=== PATIENT | female | born 1930 | race Caucasian/White ===

== ENCOUNTER 2017-08-31 09:15 | Inpatient (IN) | payer MEDICARE, OTHER ==
[2017-08-31 09:52] LABS: ADD MAN DIFF? NO
[2017-08-31 10:01] LABS: WHITE BLOOD COUNT 3.5 10^3/ul (4.8-10.8)
[2017-08-31 10:01] LABS: BASOPHILS % 0.3 % (0.0-2.0); EOSINOPHILS % 1.1 % (0.0-7.0); HEMATOCRIT 31.4 % (37.0-47.0); HEMOGLOBIN 10.1 g/dl (12.0-16.0); LYMPHOCYTES # 0.8 10^3/ul (0.8-2.9); LYMPHOCYTES % 23.5 % (15.0-51.0); MEAN CORPUSCULAR HEMOGLOBIN 24.3 pg (29.0-33.0); MEAN CORPUSCULAR HGB CONC 32.2 g/dl (32.0-37.0); MEAN CORPUSCULAR VOLUME 75.5 fl (82.0-101.0); MEAN PLATELET VOLUME 9.7 fl (7.4-10.4); MONOCYTE # 0.4 10^3/ul (0.3-0.9); MONOCYTES % 10.5 % (0.0-11.0); NEUTROPHIL # 2.3 10^3/ul (1.6-7.5); NEUTROPHILS % 64.3 % (39.0-77.0); PLATELET COUNT 232 10^3/UL (140-415); RED BLOOD COUNT 4.16 10^6/ul (4.20-5.40); RED CELL DISTRIBUTION WIDTH 12.1 % (11.5-14.5)
[2017-08-31] MEDS: SOD CHLORIDE 0.9% 500 ML IV (10:20)
[2017-08-31 10:21] LABS: INR 1.08; PROTIME 14.1 Sec (11.9-14.9); PT RATIO 1.1
[2017-08-31 10:41] LABS: ALANINE AMINOTRANSFERASE 25 IU/L (13-69); ALBUMIN 3.9 g/dl (3.3-4.9); ALBUMIN/GLOBULIN RATIO 1.25; ALKALINE PHOSPHATASE 59 IU/L (42-121); ANION GAP 18 (8-16); ASPARTATE AMINO TRANSFERASE 35 IU/L (15-46); BILIRUBIN,INDIRECT 0.3 mg/dl (0-1.1); BILIRUBIN,TOTAL 0.3 mg/dl (0.2-1.3); BLOOD UREA NITROGEN 19 mg/dl (7-20); CALCIUM 9.3 mg/dl (8.4-10.2); CARBON DIOXIDE 24 mmol/L (21-31); CHLORIDE 109 mmol/L (97-110); CREATININE 0.74 mg/dl (0.44-1.00); GLUCOSE 100 mg/dl (70-220); POTASSIUM 3.4 mmol/L (3.5-5.1); SODIUM 148 mmol/L (135-144)
[2017-08-31 10:58] LABS: TROPONIN-I < 0.012 ng/ml (0.00-0.12)
[2017-08-31] MEDS: LORAZEPAM 2 MG INJ IV (11:38)
[2017-08-31] MEDS ORDERED: ACETAMINOPHEN 325 MG TAB PO (13:30)
[2017-08-31] MEDS ORDERED: ONDANSETRON 4 MG INJ IV (13:30)
[2017-08-31 20:34] LABS: IRON 48 ug/dl (35-150)
[2017-08-31 20:43] LABS: % IRON SATURATION 13 % SAT (22-52); TOTAL IRON BINDING CAPACITY 362 ug/dl (241-421)
[2017-08-31] MEDS ORDERED: D5W-0.45 NACL + KCL 10 MEQ 1,000 ML IV (21:30)
[2017-08-31] MEDS: ENOXAPARIN 40 MG/0.4 ML SYG SC (21:38)
[2017-08-31] MEDS: POTASSIUM CHLORIDE 10 MEQ in DEXTROSE 5%-0.45% NACL 1,000 ML IV (21:38)
[2017-09-01] MEDS: LORAZEPAM 2 MG INJ IV ×2 (00:10→20:20)
[2017-09-01] MEDS: HALOPERIDOL 5 MG INJ IM ×2 (01:13→20:58)
[2017-09-01] MEDS: PANTOPRAZOLE 40 MG INJ IV (05:14)
[2017-09-01 06:48] LABS: ADD MAN DIFF? NO
[2017-09-01 06:59] LABS: BASOPHILS % 0.6 % (0.0-2.0); EOSINOPHILS % 1.2 % (0.0-7.0); HEMATOCRIT 28.6 % (37.0-47.0); HEMOGLOBIN 9.1 g/dl (12.0-16.0); LYMPHOCYTES # 0.8 10^3/ul (0.8-2.9); LYMPHOCYTES % 22.8 % (15.0-51.0); MEAN CORPUSCULAR HEMOGLOBIN 24.2 pg (29.0-33.0); MEAN CORPUSCULAR HGB CONC 31.8 g/dl (32.0-37.0); MEAN CORPUSCULAR VOLUME 76.1 fl (82.0-101.0); MEAN PLATELET VOLUME 10.4 fl (7.4-10.4); MONOCYTE # 0.3 10^3/ul (0.3-0.9); MONOCYTES % 8.3 % (0.0-11.0); NEUTROPHIL # 2.3 10^3/ul (1.6-7.5); NEUTROPHILS % 67.1 % (39.0-77.0); PLATELET COUNT 200 10^3/UL (140-415); RED BLOOD COUNT 3.76 10^6/ul (4.20-5.40); RED CELL DISTRIBUTION WIDTH 12.5 % (11.5-14.5)
[2017-09-01 06:59] LABS: WHITE BLOOD COUNT 3.4 10^3/ul (4.8-10.8)
[2017-09-01 07:14] LABS: ALANINE AMINOTRANSFERASE 33 IU/L (13-69); ALBUMIN 3.6 g/dl (3.3-4.9); ALBUMIN/GLOBULIN RATIO 1.33; ALKALINE PHOSPHATASE 49 IU/L (42-121); ANION GAP 18 (8-16); ASPARTATE AMINO TRANSFERASE 39 IU/L (15-46); BILIRUBIN,INDIRECT 0.1 mg/dl (0-1.1); BILIRUBIN,TOTAL 0.1 mg/dl (0.2-1.3); BLOOD UREA NITROGEN 15 mg/dl (7-20); CALCIUM 8.8 mg/dl (8.4-10.2); CARBON DIOXIDE 24 mmol/L (21-31); CHLORIDE 112 mmol/L (97-110); GLUCOSE 102 mg/dl (70-220); SODIUM 151 mmol/L (135-144); TOTAL PROTEIN 6.3 g/dl (6.1-8.1)
[2017-09-01 07:18] LABS: POTASSIUM 2.9 mmol/L (3.5-5.1)
[2017-09-01] MEDS ORDERED: MAG SULFATE 2GM IN 50 ML IVPB (09:00)
[2017-09-01] MEDS: POTASSIUM CHLORIDE 50 ML IVPB ×3 (09:35→11:31)
[2017-09-01] MEDS: POTASSIUM CHLORIDE (SR) 20 MEQ TAB PO (09:35)
[2017-09-01] MEDS: POTASSIUM CHLORIDE 30 MEQ in DEXTROSE 5%-0.45% NACL 1,000 ML IV ×2 (11:10→22:54)
[2017-09-01] MEDS: ENOXAPARIN 40 MG/0.4 ML SYG SC (20:20)
[2017-09-02] MEDS: PANTOPRAZOLE 40 MG INJ IV (05:44)
[2017-09-02] MEDS: LORAZEPAM 2 MG INJ IV ×2 (05:58→21:06)
[2017-09-02 08:41] LABS: ADD MAN DIFF? NO
[2017-09-02 08:45] LABS: BASOPHILS % 0.5 % (0.0-2.0); EOSINOPHILS # 0.1 10^3/ul (0.0-0.5); EOSINOPHILS % 3.5 % (0.0-7.0); HEMATOCRIT 28.2 % (37.0-47.0); LYMPHOCYTES # 0.8 10^3/ul (0.8-2.9); LYMPHOCYTES % 20.7 % (15.0-51.0); MEAN CORPUSCULAR HEMOGLOBIN 24.3 pg (29.0-33.0); MEAN CORPUSCULAR HGB CONC 31.9 g/dl (32.0-37.0); MEAN PLATELET VOLUME 10.3 fl (7.4-10.4); MONOCYTE # 0.3 10^3/ul (0.3-0.9); MONOCYTES % 7.2 % (0.0-11.0); NEUTROPHIL # 2.6 10^3/ul (1.6-7.5); NEUTROPHILS % 67.8 % (39.0-77.0); PLATELET COUNT 193 10^3/UL (140-415); RED BLOOD COUNT 3.71 10^6/ul (4.20-5.40); RED CELL DISTRIBUTION WIDTH 12.5 % (11.5-14.5)
[2017-09-02 08:45] LABS: WHITE BLOOD COUNT 3.8 10^3/ul (4.8-10.8)
[2017-09-02 09:16] LABS: ALANINE AMINOTRANSFERASE 31 IU/L (13-69); ALBUMIN 3.2 g/dl (3.3-4.9); ALBUMIN/GLOBULIN RATIO 1.06; ALKALINE PHOSPHATASE 49 IU/L (42-121); ANION GAP 15 (8-16); ASPARTATE AMINO TRANSFERASE 35 IU/L (15-46); BILIRUBIN,INDIRECT 0.3 mg/dl (0-1.1); BILIRUBIN,TOTAL 0.3 mg/dl (0.2-1.3); BLOOD UREA NITROGEN 10 mg/dl (7-20); CALCIUM 8.7 mg/dl (8.4-10.2); CARBON DIOXIDE 26 mmol/L (21-31); CHLORIDE 111 mmol/L (97-110); CREATININE 0.58 mg/dl (0.44-1.00); GLUCOSE 112 mg/dl (70-220); POTASSIUM 3.7 mmol/L (3.5-5.1); SODIUM 148 mmol/L (135-144); TOTAL PROTEIN 6.2 g/dl (6.1-8.1)
[2017-09-02] MEDS: POTASSIUM CHLORIDE 50 ML IVPB (11:04)
[2017-09-02] MEDS: POTASSIUM CHLORIDE 30 MEQ in DEXTROSE 5%-0.45% NACL 1,000 ML IV ×2 (11:11→23:44)
[2017-09-02] MEDS: HALOPERIDOL 5 MG INJ IM ×2 (11:11→18:12)
[2017-09-02] MEDS: METHIMAZOLE 5 MG TAB PO ×2 (15:24→21:06)
[2017-09-02] MEDS: ENOXAPARIN 40 MG/0.4 ML SYG SC (21:09)
[2017-09-03] MEDS: PANTOPRAZOLE 40 MG INJ IV (05:32)
[2017-09-03] MEDS: METHIMAZOLE 5 MG TAB PO ×3 (05:37→21:26)
[2017-09-03] MEDS: NITROFURANTOIN (SR) 100 MG CAP PO ×2 (12:54→21:26)
[2017-09-03] MEDS: POTASSIUM CHLORIDE 30 MEQ in DEXTROSE 5%-0.45% NACL 1,000 ML IV (13:18)
[2017-09-03] MEDS: POTASSIUM CHLORIDE 30 MEQ in SOD CHLORIDE 0.9% 150 ML IV (14:53)
[2017-09-03] MEDS: ENOXAPARIN 40 MG/0.4 ML SYG SC (21:00)
[2017-09-03] MEDS: BISACODYL (EC) 5 MG TAB PO (21:26)
[2017-09-03] MEDS: PEG/ELECTROLYTES 4L BTL PO (21:27)
[2017-09-04] MEDS: POTASSIUM CHLORIDE 30 MEQ in DEXTROSE 5%-0.45% NACL 1,000 ML IV ×3 (02:00→21:46)
[2017-09-04] MEDS ORDERED: PEG/ELECTROLYTES 4L BTL PO (05:00)
[2017-09-04] MEDS: METHIMAZOLE 5 MG TAB PO ×3 (05:31→21:38)
[2017-09-04] MEDS: PANTOPRAZOLE 40 MG INJ IV (05:31)
[2017-09-04 08:58] LABS: ADD MAN DIFF? NO
[2017-09-04] MEDS: NITROFURANTOIN (SR) 100 MG CAP PO ×2 (09:00→21:46)
[2017-09-04 09:03] LABS: BASOPHILS % 0.7 % (0.0-2.0); EOSINOPHILS # 0.1 10^3/ul (0.0-0.5); EOSINOPHILS % 2.6 % (0.0-7.0); HEMATOCRIT 32.1 % (37.0-47.0); HEMOGLOBIN 10.3 g/dl (12.0-16.0); LYMPHOCYTES # 0.7 10^3/ul (0.8-2.9); LYMPHOCYTES % 16.5 % (15.0-51.0); MEAN CORPUSCULAR HEMOGLOBIN 24.1 pg (29.0-33.0); MEAN CORPUSCULAR HGB CONC 32.1 g/dl (32.0-37.0); MEAN CORPUSCULAR VOLUME 75.2 fl (82.0-101.0); MEAN PLATELET VOLUME 10.6 fl (7.4-10.4); MONOCYTE # 0.3 10^3/ul (0.3-0.9); MONOCYTES % 7.4 % (0.0-11.0); NEUTROPHILS % 72.6 % (39.0-77.0); PLATELET COUNT 236 10^3/UL (140-415); RED BLOOD COUNT 4.27 10^6/ul (4.20-5.40); RED CELL DISTRIBUTION WIDTH 12.4 % (11.5-14.5)
[2017-09-04 09:03] LABS: WHITE BLOOD COUNT 4.2 10^3/ul (4.8-10.8)
[2017-09-04 09:33] LABS: ANION GAP 16 (8-16); BLOOD UREA NITROGEN 4 mg/dl (7-20); CALCIUM 9.6 mg/dl (8.4-10.2); CARBON DIOXIDE 28 mmol/L (21-31); CHLORIDE 106 mmol/L (97-110); GLUCOSE 119 mg/dl (70-220); POTASSIUM 3.9 mmol/L (3.5-5.1); SODIUM 146 mmol/L (135-144)
[2017-09-04] MEDS: ENOXAPARIN 40 MG/0.4 ML SYG SC (21:46)
[2017-09-05] MEDS: hydrALAzine 20 MG INJ IV (01:00)
[2017-09-05] MEDS: LORAZEPAM 2 MG INJ IV (01:01)
[2017-09-05] MEDS: PANTOPRAZOLE 40 MG INJ IV (06:32)
[2017-09-05] MEDS: METHIMAZOLE 5 MG TAB PO ×3 (06:32→21:01)
[2017-09-05] MEDS: NITROFURANTOIN (SR) 100 MG CAP PO ×2 (09:48→21:01)
[2017-09-05] MEDS: POTASSIUM CHLORIDE 30 MEQ in DEXTROSE 5%-0.45% NACL 1,000 ML IV ×2 (12:50→16:06)
[2017-09-06] MEDS: PANTOPRAZOLE 40 MG INJ IV (06:29)
[2017-09-06] MEDS: METHIMAZOLE 5 MG TAB PO ×3 (06:29→23:04)
[2017-09-06] MEDS: POTASSIUM CHLORIDE 30 MEQ in DEXTROSE 5%-0.45% NACL 1,000 ML IV ×2 (08:33→17:30)
[2017-09-06] MEDS: NITROFURANTOIN (SR) 100 MG CAP PO ×2 (09:19→23:05)
[2017-09-06 09:46] LABS: ADD MAN DIFF? NO
[2017-09-06 09:51] LABS: WHITE BLOOD COUNT 8.5 10^3/ul (4.8-10.8)
[2017-09-06 09:51] LABS: BASOPHILS % 0.1 % (0.0-2.0); EOSINOPHILS % 0.4 % (0.0-7.0); HEMATOCRIT 33.4 % (37.0-47.0); HEMOGLOBIN 10.8 g/dl (12.0-16.0); LYMPHOCYTES # 0.8 10^3/ul (0.8-2.9); LYMPHOCYTES % 8.8 % (15.0-51.0); MEAN CORPUSCULAR HEMOGLOBIN 24.4 pg (29.0-33.0); MEAN CORPUSCULAR HGB CONC 32.3 g/dl (32.0-37.0); MEAN CORPUSCULAR VOLUME 75.6 fl (82.0-101.0); MEAN PLATELET VOLUME 10.3 fl (7.4-10.4); MONOCYTE # 0.8 10^3/ul (0.3-0.9); NEUTROPHIL # 6.9 10^3/ul (1.6-7.5); NEUTROPHILS % 81.3 % (39.0-77.0); PLATELET COUNT 308 10^3/UL (140-415); RED BLOOD COUNT 4.42 10^6/ul (4.20-5.40); RED CELL DISTRIBUTION WIDTH 12.8 % (11.5-14.5)
[2017-09-06 10:06] LABS: ANION GAP 17 (8-16); BLOOD UREA NITROGEN 14 mg/dl (7-20); CALCIUM 9.6 mg/dl (8.4-10.2); CARBON DIOXIDE 26 mmol/L (21-31); CHLORIDE 104 mmol/L (97-110); CREATININE 0.58 mg/dl (0.44-1.00); GLUCOSE 136 mg/dl (70-220); POTASSIUM 4.2 mmol/L (3.5-5.1); SODIUM 143 mmol/L (135-144)
[2017-09-06 10:07] LABS: INR 1.07; PT RATIO 1.1
[2017-09-06 10:08] LABS: PARTIAL THROMBOPLASTIN TIME 27.5 Sec (25.0-35.0)
[2017-09-06] MEDS: hydrALAzine 20 MG INJ IV (12:08)
[2017-09-06] MEDS ORDERED: PEG/ELECTROLYTES 4L BTL PO ×2 (16:00→20:00)
[2017-09-06] MEDS: BISACODYL (EC) 5 MG TAB PO ×2 (16:20→23:04)
[2017-09-06] MEDS: MAGNESIUM CITRATE 300 ML BTL PO (18:08)
[2017-09-06] MEDS ORDERED: BISACODYL (EC) 5 MG TAB PO (20:00)
[2017-09-07] MEDS: POTASSIUM CHLORIDE 30 MEQ in DEXTROSE 5%-0.45% NACL 1,000 ML IV ×2 (00:57→14:50)
[2017-09-07] MEDS: METHIMAZOLE 5 MG TAB PO ×3 (06:00→22:40)
[2017-09-07] MEDS: PANTOPRAZOLE 40 MG INJ IV (06:45)
[2017-09-07] MEDS ORDERED: PROPOFOL 200 MG INJ (07:00)
[2017-09-07] MEDS ORDERED: LIDOCAINE 2% (SDV) 5 ML INJ (07:00)
[2017-09-07] MEDS: PROPOFOL 40 ML (08:06)
[2017-09-07] MEDS: EPHEDrine SULFATE 50 MG/5 ML SYG (08:07)
[2017-09-07] MEDS: PHENYLephrine (100 MCG/ML) 5ML SYG (08:08)
[2017-09-07] MEDS ORDERED: morphine (1 MG/ML) 10ML SYRINGE IV ×2 (09:30)
[2017-09-07] MEDS ORDERED: LABETALOL HCL 20MG INJ IV (09:30)
[2017-09-07] MEDS ORDERED: OXYCODONE/ACETAMINOPHEN (5/325) TAB PO (09:30)
[2017-09-07] MEDS ORDERED: DIPHENHYDRAMINE 50 MG INJ IV (09:30)
[2017-09-07] MEDS ORDERED: ONDANSETRON 4 MG INJ IV (09:30)
[2017-09-07] MEDS ORDERED: MIDAZOLAM 1 MG/ML 2 ML INJ IV (09:30)
[2017-09-07] MEDS ORDERED: EPHEDrine SULFATE 50 MG/5 ML SYG IV (09:30)
[2017-09-07] MEDS ORDERED: ALBUTEROL 0.083% (NEB) 2.5 MG/3 ML AMP HHN (09:30)
[2017-09-07] MEDS ORDERED: hydrALAzine 20 MG INJ IV (09:30)
[2017-09-07] MEDS: NITROFURANTOIN (SR) 100 MG CAP PO ×2 (11:06→22:46)
[2017-09-08] MEDS: METHIMAZOLE 5 MG TAB PO ×3 (05:49→21:00)
[2017-09-08] MEDS: PANTOPRAZOLE 40 MG INJ IV (05:49)
[2017-09-08] MEDS: POTASSIUM CHLORIDE 30 MEQ in DEXTROSE 5%-0.45% NACL 1,000 ML IV (06:42)
[2017-09-08] MEDS: NITROFURANTOIN (SR) 100 MG CAP PO ×2 (08:49→20:47)
[2017-09-08] MEDS: SALINE 0.65% 45 ML NAS SPRAY NASAL ×2 (09:30→20:45)
[2017-09-09] MEDS: LORAZEPAM 2 MG INJ IV (03:00)
[2017-09-09] MEDS: METHIMAZOLE 5 MG TAB PO ×3 (05:36→21:00)
[2017-09-09] MEDS: PANTOPRAZOLE 40 MG INJ IV (05:36)
[2017-09-09] MEDS: NITROFURANTOIN (SR) 100 MG CAP PO ×2 (09:00→20:59)
[2017-09-09] MEDS: SALINE 0.65% 45 ML NAS SPRAY NASAL ×2 (09:50→20:59)
[2017-09-10] MEDS: METHIMAZOLE 5 MG TAB PO ×3 (05:12→23:09)
[2017-09-10] MEDS: PANTOPRAZOLE 40 MG INJ IV (06:07)
[2017-09-10] MEDS ORDERED: SUCCINYLCHOLINE CHLORIDE 100 MG/5 ML SYG IV (08:23)
[2017-09-10] MEDS ORDERED: ROCURONIUM 50 MG INJ (08:23)
[2017-09-10] MEDS ORDERED: NEOSTIGMINE 3 MG/3 ML SYRINGE (08:23)
[2017-09-10] MEDS ORDERED: GLYCOPYRROLATE 0.4 MG INJ ×2 (08:23→09:14)
[2017-09-10] MEDS ORDERED: LIDOCAINE 2% (SDV) 5 ML INJ (08:23)
[2017-09-10] MEDS ORDERED: PROPOFOL 20 ML (08:23)
[2017-09-10] MEDS: CEFAZOLIN 1 GM/50 ML (PMX) IVPB (08:25)
[2017-09-10] MEDS ORDERED: METOCLOPRAMIDE 10 MG INJ (08:53)
[2017-09-10] MEDS ORDERED: ONDANSETRON 4 MG INJ (08:53)
[2017-09-10] MEDS: NITROFURANTOIN (SR) 100 MG CAP PO ×2 (09:00→23:09)
[2017-09-10] MEDS: SALINE 0.65% 45 ML NAS SPRAY NASAL ×2 (09:00→23:09)
[2017-09-10] MEDS ORDERED: morphine 2 MG INJ IV (09:30)
[2017-09-10] MEDS ORDERED: OXYCODONE/ACETAMINOPHEN (5/325) TAB PO ×2 (09:30)
[2017-09-10] MEDS ORDERED: ONDANSETRON 4 MG INJ IV (09:30)
[2017-09-10] MEDS: POTASSIUM CHLORIDE 10 MEQ in DEXTROSE 5%-0.45% NACL 1,000 ML IV (15:06)
[2017-09-11] MEDS: METHIMAZOLE 5 MG TAB PO ×3 (05:22→21:10)
[2017-09-11] MEDS: PANTOPRAZOLE 40 MG INJ IV (05:22)
[2017-09-11] MEDS: POTASSIUM CHLORIDE 10 MEQ in DEXTROSE 5%-0.45% NACL 1,000 ML IV ×2 (05:22→21:54)
[2017-09-11 06:57] LABS: ADD MAN DIFF? NO
[2017-09-11 07:00] LABS: WHITE BLOOD COUNT 5.3 10^3/ul (4.8-10.8)
[2017-09-11 07:00] LABS: BASOPHILS % 0.2 % (0.0-2.0); EOSINOPHILS # 0.1 10^3/ul (0.0-0.5); EOSINOPHILS % 1.3 % (0.0-7.0); HEMATOCRIT 25.5 % (37.0-47.0); LYMPHOCYTES # 0.6 10^3/ul (0.8-2.9); LYMPHOCYTES % 11.9 % (15.0-51.0); MEAN CORPUSCULAR HEMOGLOBIN 23.7 pg (29.0-33.0); MEAN CORPUSCULAR HGB CONC 31.4 g/dl (32.0-37.0); MEAN CORPUSCULAR VOLUME 75.4 fl (82.0-101.0); MEAN PLATELET VOLUME 10.4 fl (7.4-10.4); MONOCYTE # 0.4 10^3/ul (0.3-0.9); MONOCYTES % 7.9 % (0.0-11.0); NEUTROPHIL # 4.2 10^3/ul (1.6-7.5); NEUTROPHILS % 78.3 % (39.0-77.0); PLATELET COUNT 231 10^3/UL (140-415); RED BLOOD COUNT 3.38 10^6/ul (4.20-5.40); RED CELL DISTRIBUTION WIDTH 12.7 % (11.5-14.5)
[2017-09-11 07:27] LABS: IRON 23 ug/dl (35-150)
[2017-09-11 07:29] LABS: ALANINE AMINOTRANSFERASE 23 IU/L (13-69); ALBUMIN 3.1 g/dl (3.3-4.9); ALBUMIN/GLOBULIN RATIO 1.14; ALKALINE PHOSPHATASE 53 IU/L (42-121); ANION GAP 15 (8-16); ASPARTATE AMINO TRANSFERASE 14 IU/L (15-46); BLOOD UREA NITROGEN 13 mg/dl (7-20); CALCIUM 8.8 mg/dl (8.4-10.2); CARBON DIOXIDE 29 mmol/L (21-31); CHLORIDE 101 mmol/L (97-110); CREATININE 0.57 mg/dl (0.44-1.00); GLUCOSE 119 mg/dl (70-220); MAGNESIUM 1.8 mg/dl (1.7-2.5); POTASSIUM 3.6 mmol/L (3.5-5.1); SODIUM 141 mmol/L (135-144); TOTAL PROTEIN 5.8 g/dl (6.1-8.1)
[2017-09-11 07:37] LABS: % IRON SATURATION 8 % SAT (22-52); TOTAL IRON BINDING CAPACITY 301 ug/dl (241-421)
[2017-09-11] MEDS: NITROFURANTOIN (SR) 100 MG CAP PO ×2 (09:00→21:00)
[2017-09-11] MEDS: SALINE 0.65% 45 ML NAS SPRAY NASAL ×2 (09:41→21:00)
[2017-09-12] MEDS: SOD FERRIC GLUC COMPLX 125 MG in SOD CHLORIDE 0.9% 100 ML IVPB ×2 (00:34→16:49)
[2017-09-12] MEDS: PANTOPRAZOLE 40 MG INJ IV (05:37)
[2017-09-12] MEDS: METHIMAZOLE 5 MG TAB PO ×3 (05:40→20:52)
[2017-09-12 07:58] LABS: ADD MAN DIFF? NO
[2017-09-12 08:05] LABS: ABNORMAL IP MESSAGE 1; BASOPHILS % 0.4 % (0.0-2.0); EOSINOPHILS # 0.1 10^3/ul (0.0-0.5); EOSINOPHILS % 1.1 % (0.0-7.0); HEMATOCRIT 25.4 % (37.0-47.0); LYMPHOCYTES # 0.5 10^3/ul (0.8-2.9); LYMPHOCYTES % 10.3 % (15.0-51.0); MEAN CORPUSCULAR HEMOGLOBIN 23.9 pg (29.0-33.0); MEAN CORPUSCULAR HGB CONC 31.5 g/dl (32.0-37.0); MEAN CORPUSCULAR VOLUME 75.8 fl (82.0-101.0); MONOCYTE # 0.4 10^3/ul (0.3-0.9); MONOCYTES % 7.9 % (0.0-11.0); NEUTROPHIL # 4.2 10^3/ul (1.6-7.5); NEUTROPHILS % 79.9 % (39.0-77.0); PLATELET COUNT 253 10^3/UL (140-415); RED BLOOD COUNT 3.35 10^6/ul (4.20-5.40); RED CELL DISTRIBUTION WIDTH 12.8 % (11.5-14.5)
[2017-09-12 08:05] LABS: WHITE BLOOD COUNT 5.2 10^3/ul (4.8-10.8)
[2017-09-12 08:06] LABS: POSITIVE DIFF @See below
[2017-09-12] MEDS: POTASSIUM CHLORIDE 10 MEQ in DEXTROSE 5%-0.45% NACL 1,000 ML IV ×2 (09:36→23:33)
[2017-09-12] MEDS: NITROFURANTOIN (SR) 100 MG CAP PO ×2 (09:41→20:50)
[2017-09-12] MEDS: SALINE 0.65% 45 ML NAS SPRAY NASAL ×2 (09:41→20:50)
[2017-09-12] MEDS: HALOPERIDOL 5 MG INJ IM (23:33)
[2017-09-13] MEDS: METHIMAZOLE 5 MG TAB PO ×2 (05:53→13:29)
[2017-09-13] MEDS: PANTOPRAZOLE 40 MG INJ IV (05:53)
[2017-09-13] MEDS: SALINE 0.65% 45 ML NAS SPRAY NASAL ×2 (09:32→12:53)
[2017-09-13] MEDS: NITROFURANTOIN (SR) 100 MG CAP PO (09:33)
[2017-09-13] MEDS: POTASSIUM CHLORIDE 10 MEQ in DEXTROSE 5%-0.45% NACL 1,000 ML IV (14:20)
== END 2017-09-13 16:00 | disposition home or self-care (01) | DRG 988 ==
LOC: E/R 09:15 → MS4 13:14
PROC: 0DBP7ZZ Excision of Rectum, Via Natural or Artificial Opening (ICD-10-PCS; principal; 2017-09-07 07:40)
PROC: 2Y41X5Z Packing of Nasal Region using Packing Material (ICD-10-PCS; 2017-09-07 07:40)
PROC: 0DBP8ZX Excision of Rectum, Via Natural or Artificial Opening Endoscopic, Diagnostic (ICD-10-PCS; 2017-09-07 07:40)
DX: G93.41 Metabolic encephalopathy (principal); N17.9 Acute kidney failure, unspecified; E87.0 Hyperosmolality and hypernatremia; E44.0 Moderate protein-calorie malnutrition; E87.2 Acidosis; N39.0 Urinary tract infection, site not specified; M40.209 Unspecified kyphosis, site unspecified; E86.0 Dehydration; G30.9 Alzheimer's disease, unspecified; F02.80 Dementia in other diseases classified elsewhere, unspecified severity, without behavioral disturbance, psychotic disturbance, mood disturbance, and anxiety; E87.6 Hypokalemia; R73.9 Hyperglycemia, unspecified; D63.8 Anemia in other chronic diseases classified elsewhere; Z99.3 Dependence on wheelchair; F32.9 Major depressive disorder, single episode, unspecified; M81.0 Age-related osteoporosis without current pathological fracture; E78.5 Hyperlipidemia, unspecified; E05.90 Thyrotoxicosis, unspecified without thyrotoxic crisis or storm; R63.4 Abnormal weight loss; Z68.22 Body mass index [BMI] 22.0-22.9, adult; R04.0 Epistaxis; M21.70 Unequal limb length (acquired), unspecified site; I11.0 Hypertensive heart disease with heart failure; I50.9 Heart failure, unspecified; I25.119 Atherosclerotic heart disease of native coronary artery with unspecified angina pectoris; F41.9 Anxiety disorder, unspecified; E11.65 Type 2 diabetes mellitus with hyperglycemia; K74.60 Unspecified cirrhosis of liver; Z86.73 Personal history of transient ischemic attack (TIA), and cerebral infarction without residual deficits; D50.9 Iron deficiency anemia, unspecified; K57.30 Diverticulosis of large intestine without perforation or abscess without bleeding; B96.20 Unspecified Escherichia coli [E. coli] as the cause of diseases classified elsewhere; D12.8 Benign neoplasm of rectum
CPT/HCPCS: 36415; 70450; 71045; 72170; 74018; 74176; 80048; 80053; 82962; 83540; 83735; 84443; 84484; 85025; 85610; 85730; 87086; 88305; 92526; 92610; 93005; 96374; 97110; 97162; 97530; 99285-25